=== PATIENT | female | born 1955 | race Caucasian/White ===

== ENCOUNTER 2023-06-27 11:00 | Outpatient (RCR) | payer MEDICARE, SELFPAY | END 2023-06-27 12:45 | disposition home or self-care (01) | LOC: HO.PT 11:00 | PROVIDERS: PCP Family Medicine; Visit Provider Internal Medicine Gastroenterology | DX: K62.89 Other specified diseases of anus and rectum (principal) | CPT/HCPCS: 97014; 97110; 97112; 97140; 97162 ==